=== PATIENT | male | born 1995 | race Caucasian/White ===

== ENCOUNTER → 2022-10-07 15:12 | Outpatient (CLI) | payer OTHER, MEDICAID, SELFPAY ==
--- NOTE | 2022-10-07 15:14 | DI.US.S_ITS ---
PROCEDURE: US SCROTUM INDICATIONS: MASS OF RIGHT TESTICLE TECHNIQUE: Real-time scanning was performed of the scrotum and testicles, with image documentation. Color and pulse Doppler interrogation was performed of both testicles. COMPARISON: [facility], US, US TESTICULAR SCROTUM + DOPPLER, 05/06/2022, 13:05. FINDINGS: Right: Testicle is normal in size at 5.6 x 2.6 x 3.0 cm. Redemonstrated testicular mass with a lamellated/onion skin appearance. This measures 1.6 x 1.4 x 1.5 cm, previously 1.6 x 1.4 x 1.4 cm. Epididymis is normal in overall size and morphology. No hydrocele or varicoceles. Overlying scrotal skin is normal in thickness. Left: Testicle is normal in size at 4.8 x 2.4 x 2.9 cm, and homogeneous in echotexture. Epididymis is normal in overall size and morphology. No hydrocele or varicoceles. Overlying scrotal skin is normal in thickness. Doppler: Color and pulse Doppler demonstrate normal and symmetric arterial flow in both testicles. IMPRESSION: No significant interval change in size of the previously demonstrated right testicular mass measuring up to 1.6 cm. Appearance raises the possibility of an epidermoid cyst, other etiologies cannot be fully excluded. Dictated by: Douglas Membreno M.D. on 10/08/2022 at 11:12 Approved by: Douglas Membreno M.D. on 10/08/2022 at 11:21
--- NOTE | 2022-10-07 15:18 | DI.RAD.S_ITS ---
PROCEDURE: XR CHEST 2V INDICATIONS: CHEST XRAY TECHNIQUE: 2 views of the chest were acquired. COMPARISON: None. FINDINGS: Surgical changes and devices: None. Lungs and pleura: Lungs are clear. No pleural effusions or pneumothorax. Mediastinum: Mediastinal contours are normal. Heart size is normal. Bones and chest wall: No suspicious bony abnormalities. Soft tissues appear unremarkable. IMPRESSION: No acute cardiopulmonary pathology. Dictated by: Joseph Hurst M.D. on 10/07/2022 at 18:00 Approved by: Joseph Hurst M.D. on 10/07/2022 at 18:00
== END ==
PROVIDERS: Family Provider Family Medicine; PCP Family Medicine; Referring Provider Urology; Visit Provider Urology
DX: N50.89 Other specified disorders of the male genital organs (principal)
CPT/HCPCS: 71046; 76870; 93975